=== PATIENT | female | born 2005 | race Two or more races ===

== ENCOUNTER 2023-01-25 06:00 | Day surgery (SDC) | payer OTHER ==
[~2023-01-25] VITALS: Ht 165.1 cm; Wt 66.2 kg
== END 2023-01-25 14:10 | disposition home or self-care (01) ==
LOC: CIR.AMB 06:00
PROVIDERS: ATTEND Plastic Surgery
DX: N62 Hypertrophy of breast (principal); N64.89 Other specified disorders of breast; Z20.822 Contact with and (suspected) exposure to COVID-19